=== PATIENT | female | born 1990 | race Caucasian/White ===

== ENCOUNTER 2016-11-26 08:37 | Day surgery (SDC) | payer OTHER, SELFPAY ==
[2016-03-02 19:47] VITALS: BMI 34.3
[2016-11-26] MEDS ORDERED: CEFAZOLIN 1 GM VIAL ONE (09:09)
[2016-11-26] MEDS ORDERED: FENTANYL 100 MCG/2 ML VIAL IV ONE (10:00)
[2016-11-26] MEDS ORDERED: METOCLOPRAMIDE 10 MG/2 ML VIAL IV ONE (10:00)
[2016-11-26] MEDS ORDERED: GLYCOPYRROLATE 1 MG VIAL IM ONE (10:00)
[2016-11-26] MEDS ORDERED: PROPOFOL 200 MG/20 ML VIAL IV ONE (10:00)
[2016-11-26] MEDS ORDERED: LIDOCAINE 100 MG PFS IV ONE (10:00)
[2016-11-26] MEDS ORDERED: DEXAMETHASONE 4 MG/ML VIAL IV ONE (10:00)
[2016-11-26] MEDS ORDERED: ONDANSETRON HCL 4 MG/2 ML VIAL IV ONE (10:00)
[2016-11-26] MEDS ORDERED: MIDAZOLAM 2 MG/2 ML VIAL IV ONE (10:00)
--- NOTE | 2016-11-26 10:36 | HIM.ANES ---
Anesthesia Evaluation & Plan Diagnoses: DYSPLASIA OF CERVIX UTERI, UNSPECIFIED (11/26/16) Consented Procedure: COLD KNIFE CONIZATION OF CERVIX WITH ENDOCERVICAL CURETTAGE - Focused Review of Systems Cardiac History: Yes: Hx Hypertension (monitoring for increased bps now) No: Hx Cardiac Disorders EKG Rhythm: Sinus Rhythm HEENT: No: Loose/Decaying Teeth, Removable Dental Work, Other HEENT Problems Respiratory: No: Hx Asthma Gastrointestinal: No: Hx Gastrointestinal Disorders Neurological/Musculoskeletal: No: Hx Neurological Disorders Other Neurological Problems: HEADACHES Psychological: No Hx Mental/Emotional Disorders Blood/Autoimmune: No: Hx Blood Transfusions, Hx Anemia, Hx AIDS, Hx Hepatitis (type), Hx Sickle Cell Disease Smoking Status: Heavy tobacco smoker (5 or more cigarettes/day or daily pipe/ cigar) Past Social History: Denies: Amphetamine Use, Barbiturate Use, Benzodiazipine Use, Cocaine Use, Heroin Use, Marijuana Use, Methadone Use, MDMA (Ecstasy) Use, Substance Use Disorder Hx Stress Test (date): No Hx Echocardiogram (date): No Hx Chest Xray (date): No Surgical History: Yes: Appendectomy, Knee (RT KNEE ARTHROSCOPIC SX) Other Surgical History: C SECTION 02/2016 - Focused Physical Exam NPO since: 11/25/161999 Mallampati: Class II Thyromental Distance: Greater than 3 Neck: Full Range of Motion Dental: Normal - no significant findings Cardiovascular/Chest: Normal Respiratory: Lungs clear Any problems with anesthesia, including nausea and vomiting?: Yes (n/v) Any relatives with a history of Malignant Hyperthermia?: No Beta Buck given (if appropriate): N/A Does the patient have a history of Motion Sickness-: No Other: Problem List Problem Status Onset 31 weeks gestation of Acute 36 weeks gestation of Acute 37 weeks gestation of Acute delivery delivered Acute Elevated blood pressure complicating in third trimester, antepartum Acute Failure to progress in labor Acute Lower extremity pain, right Acute care following delivery Acute Right flank pain Acute Single live Acute PT/PTT/INR/ Urine Test Neg (NEGATIVE) 11/26/16 08:55 Allergies Allergy/AdvReac Type Severity Reaction Status Date / Time No Known Allergies Allergy Verified 11/26/16 09:17 Home Medications Medication Instructions Recorded Last Taken Type Norethindrone [Tatyana] 0.35 mg PO DAILY 11/25/16 11/24/16 History Height and Weight Patient's height 5 ft 3 in Patient's weight 83.915 kg BMI 34.3 Vital Signs Temperature 97.8 F 11/26/16 09:18 Pulse Rate 88 11/26/16 09:18 Respiratory Rate 16 11/26/16 09:18 Blood Pressure 109/67 11/26/16 09:18 Pulse Oxygen Saturation 97 11/26/16 09:18 METS - Level of Activity: Climbing stairs(1 flight),walking level ground, running short distance - Anesthetic Plan Anesthesia Type: General ASA Class: 2 -: I have examined this patient and reviewed the medical record. The patient has been assessed prior to anesthesia. Risks and benefits of anesthesia and anesthetic technique options have been discussed and all questions answered. The patient accepts the risk and desires me to proceed with the planned anesthetic.
[2016-11-26] MEDS ORDERED: ONDANSETRON HCL 4 MG/2 ML VIAL IV PRN (10:38)
[2016-11-26] MEDS ORDERED: LABETALOL 20 MG/4 ML SYRINGE IV PRN (10:38)
[2016-11-26] MEDS ORDERED: ACETAMINOPHEN 325 MG/TAB TABLET PO ONE ×2 (10:38→10:41)
[2016-11-26] MEDS ORDERED: HYDROmorphone 1 MG INJECTION IV PRN ×2 (10:38)
[2016-11-26] MEDS ORDERED: ONDANSETRON HCL 4 MG ODT TAB PO PRN (10:38)
[2016-11-26] MEDS ORDERED: hydrALAZINE 20 MG/ML VIAL IV PRN (10:38)
[2016-11-26] MEDS ORDERED: MEPERIDINE 25 MG/ML TUBEX IV PRN (10:38)
[2016-11-26] MEDS ORDERED: FENTANYL 100 MCG/2 ML VIAL IV PRN ×2 (10:38)
--- NOTE | 2016-11-26 10:38 | HIM.ANES ---
Anesthesia Evaluation & Plan Diagnoses: DYSPLASIA OF CERVIX UTERI, UNSPECIFIED (11/26/16) Consented Procedure: COLD KNIFE CONIZATION OF CERVIX WITH ENDOCERVICAL CURETTAGE - Focused Review of Systems Cardiac History: Yes: Hx Hypertension (monitoring for increased bps now) No: Hx Cardiac Disorders HEENT: No: Other HEENT Problems Gastrointestinal: No: Hx Gastrointestinal Disorders Neurological/Musculoskeletal: No: Hx Neurological Disorders Other Neurological Problems: HEADACHES Psychological: No Hx Mental/Emotional Disorders Blood/Autoimmune: No: Hx Blood Transfusions, Hx Anemia, Hx AIDS, Hx Hepatitis (type), Hx Sickle Cell Disease Smoking Status: Heavy tobacco smoker (5 or more cigarettes/day or daily pipe/ cigar) Past Social History: Denies: Amphetamine Use, Barbiturate Use, Benzodiazipine Use, Cocaine Use, Heroin Use, Marijuana Use, Methadone Use, MDMA (Ecstasy) Use, Substance Use Disorder Hx Stress Test (date): No Hx Echocardiogram (date): No Hx Chest Xray (date): No Surgical History: Yes: Appendectomy, Knee (RT KNEE ARTHROSCOPIC SX) Other Surgical History: C SECTION 02/2016 - Focused Physical Exam NPO since: 11/25/161999 Any problems with anesthesia, including nausea and vomiting?: Yes (n/v) Any relatives with a history of Malignant Hyperthermia?: No Beta Buck given (if appropriate): N/A Does the patient have a history of Motion Sickness-: No Other: Problem List Problem Status Onset 31 weeks gestation of Acute 36 weeks gestation of Acute 37 weeks gestation of Acute delivery delivered Acute Elevated blood pressure complicating in third trimester, antepartum Acute Failure to progress in labor Acute Lower extremity pain, right Acute care following delivery Acute Right flank pain Acute Single live Acute PT/PTT/INR/ Urine Test Neg (NEGATIVE) 11/26/16 08:55 Allergies Allergy/AdvReac Type Severity Reaction Status Date / Time No Known Allergies Allergy Verified 11/26/16 09:17 Home Medications Medication Instructions Recorded Last Taken Type Norethindrone [Tatyana] 0.35 mg PO DAILY 11/25/16 11/24/16 History Height and Weight Patient's height 5 ft 3 in Patient's weight 83.915 kg BMI 34.3 Vital Signs Temperature 97.8 F 11/26/16 09:18 Pulse Rate 88 11/26/16 09:18 Respiratory Rate 16 11/26/16 09:18 Blood Pressure 109/67 11/26/16 09:18 Pulse Oxygen Saturation 97 11/26/16 09:18 - Anesthetic Plan -: I have examined this patient and reviewed the medical record. The patient has been assessed prior to anesthesia. Risks and benefits of anesthesia and anesthetic technique options have been discussed and all questions answered. The patient accepts the risk and desires me to proceed with the planned anesthetic.
[2016-11-26] MEDS ORDERED: FERRIC SUBSULFATE TOP ONE (12:13)
--- NOTE | 2016-11-26 12:23 | HIMOPRPT ---
DATE OF PROCEDURE: 11/26/16 PREOPERATIVE DIAGNOSIS: High grade cervical dysplasia. POSTOPERATIVE DIAGNOSIS: High grade cervical dysplasia. PROCEDURE: Cervical conization with endocervical curettage. SURGEON: Lucho Kathleen MD. ANESTHESIA: General endotracheal tube. COMPLICATIONS: None. ESTIMATED BLOOD LOSS: 5 cubic centimeters. FINDINGS: Grossly normal-appearing cervix on exam under anesthesia. PROCEDURE IN DETAIL: The patient was taken to the operating room and after successful induction of general endotracheal tube anesthesia, was positioned in [facility]. The perineum and vagina were prepped and draped as a sterile field and the bladder was drained. A weighted speculum and anterior [place] were placed and the cervix was secured with a long Allis clamp. Stay sutures were placed at 3 and 9 o'clock using 0 chromic suture. The cervical cone was resected using a needlepoint Bovie on cut mode. The endocervical curettings were then obtained using a cervical curette. All specimens were passed off the field, and the cone bed was rendered hemostatic with Bovie cautery. Once hemostasis was complete, the cone bed was treated with Monsel's solution and again noted to be completely hemostatic. The stay sutures were cut and all instruments were removed from the vagina. The patient was taken down from [facility] and woken up from general anesthesia, and brought to recovery room in stable condition. Sponge and instrument counts were correct x3. All specimens were sent to pathology.
--- NOTE | 2016-11-26 12:24 | PCM.DCS92 ---
- Primary/Secondary Discharge Diagnoses (1) Cervical dysplasia Acute N87.9 - DYSPLASIA OF CERVIX UTERI, UNSPECIFIED Present on Admission: Yes - HOSPITAL COURSE /Op Complications: None - DISCHARGE INSTRUCTIONS Discharge Disposition: Home Discharge Condition: Good Cognitive Discharge Status: Unimpaired Fuctional Discharge Status: Independent Patient Leaving with Prescriptions?: Yes Prescriptions: Hydrocodone Bit/Acetaminophen [Lortab 5/325] 1 - 2 tab PO Q4H PRN #30 tab PRN Reason: Pain Ibuprofen Tablet [Motrin] 800 mg PO Q6-8H PRN #30 tab PRN Reason: Pain - Diet Diet at Discharge: Regular - Activity Activity: Pelvic Rest, No Driving No Driving for: While using pain medications - Instructions Call Physician for: Severe Abdominal Cramps, Foul Smelling Discharge, Soaking Pad in 1 hr, Temperature Above 100.4 - Incision Incision, Lacerations, or Tears: No - DC Summary Notes Discharge Medications: *See "Discharge Medication List" for a complete list of Home Medications and Discharge Medications.*
[2016-11-26 12:45] VITALS: TEMP 97.2
--- NOTE | 2016-11-26 13:19 | SC.ANESPOS ---
Post-Anesthesia Note LOC: Fully Awake Post-Anesthesia Assessment: Awake, Returned to Baseline, Hemodynamically Stable , Pain Control Adequate Phase I & II Recovery Complete: Yes Apparent Anesthesia Complication: No : N PACU Discharge Time: 13:00 - Vital Signs Blood Pressure: 109/69 Pulse: 72 Resp Rate: 20 O2 Sat: 95 Temp: 97.2 F - Comments Anesthesia Discharge Time Report Time 13:00
[2016-11-26 13:49] VITALS: BP 128/84; PULSE 73
== END 2016-11-26 13:50 | disposition home or self-care (01) ==
LOC: SDC 08:37
PROVIDERS: ATTEND Obstetrics & Gynecology
PROC: 0UBC7ZZ Excision of Cervix, Via Natural or Artificial Opening (ICD-10-PCS; principal; 2016-11-26 09:45)
DX: D06.7 Carcinoma in situ of other parts of cervix (principal); I10 Essential (primary) hypertension; F17.210 Nicotine dependence, cigarettes, uncomplicated
CPT/HCPCS: 57520; 81025; J0690; J1100; J2001; J2250; J2405; J2765; J3010; J3490